=== PATIENT | male | born 1960 | race Caucasian/White ===

== ENCOUNTER 2018-11-10 09:48 | Emergency (ER) | payer SELFPAY ==
[~2018-11-10] VITALS: Ht 185.4 cm; Wt 83.9 kg
--- NOTE | 2018-11-10 09:55 | NUR ---
ED Nurse Note: Pt walked in ED c/o right ankle pain and swelling. Pt states he twisted right ankle couple of weeks ago. Pain 6/10 when walking.
--- NOTE | 2018-11-10 10:20 | NUR ---
ED Nurse Note: Xray at bedside.
--- NOTE | 2018-11-10 10:39 | NUR ---
ED Nurse Note: ERMD at bedside.
--- NOTE | 2018-11-10 10:50 | Emergency Room Report ---
History of Present Illness General Chief Complaint: Lower Extremity Injury Source: Patient Present Illness HPI Patient is a 58-year-old male who presents after increased right ankle pain. Patient reports having injury approximately 3 weeks ago. He states he inverted his ankle. He had been having increased difficulty with movement but had been ambulatory. He reports having some significant pain to the area.Patient reportedly had been taking gabapentin as well as other medications. He denies any other locations of injury. Allergies: Coded Allergies: No Known Allergies (Unverified , 11/10/18) Patient History Past Medical History: see triage record Reviewed Nursing Documentation: PMH: Agreed; PSxH: Agreed Nursing Documentation-[facility] Past Medical History: No History, Except For History Of Psychiatric Problem: Yes - Depression Review of Systems All Other Systems: negative except mentioned in HPI Physical Exam Vital Signs Date Time Temp Pulse Resp B/P (MAP) Pulse Ox O2 Delivery O2 Flow Rate FiO2 11/10/18 09:51 98.8 90 20 142/96 (111) 97 Room Air General Appearance: no apparent distress, alert, GCS 15, Chronically Ill Head: normocephalic, atraumatic ENT: hearing grossly normal, normal voice Neck: full range of motion, supple Respiratory: chest non-tender, lungs clear, normal breath sounds, no respiratory distress, speaking full sentences Gastrointestinal: normal inspection Musculoskeletal: decreased range of mation, other - swelling, deformity Neurologic: normal inspection, alert, normal gait Psychiatric: normal inspection, mood/affect normal Skin: no rash Medical Decision Making Diagnostic Impression: Primary Impression: Closed right ankle fracture Additional Impression: Dislocated ankle ER Course Patient presented for right ankle pain. Differential diagnosis include was not limited to fracture, dislocation, contusion among others. X-ray imaging of the right ankle 3 views interpreted by radiology subacute appearing fracture dislocation of the right ankle with a significant bone callus formation. Patient was noted to be ambulatory on his fracture for several weeks. Patient was placed in a 3 sided splint. He was given crutches. He was advised nonweightbearing status. Given the patient's prolonged time to presentation I feel that this is unreducible fracture at this time. Patient was noted to be able to wiggle his toes good sensation to his extremity. Patient was given prescription for pain medications. He is advised to follow-[facility] with [facility] for operative reduction of fracture dislocation of the ankle. Last Vital Signs Date Time Temp Pulse Resp B/P (MAP) Pulse Ox O2 Delivery O2 Flow Rate FiO2 11/10/18 09:51 98.8 90 20 142/96 (111) 97 Room Air Status: improved Disposition: HOME, SELF-CARE Condition: Stable Scripts Ibuprofen* (MOTRIN*) 600 Mg Tablet 600 MG ORAL Q8H PRN for For Pain, #30 TAB 0 Refills Prov: Jono Naranjo MD 11/10/18 Hydrocodone Bit/Acetaminophen 5-325* (NORCO 5-325*) 1 Each Tablet 1 TAB ORAL Q6H PRN for For Pain, #20 TAB 0 Refills Prov: Jono Naranjo MD 11/10/18 Referrals: NOT CHOSEN [facility]/,REFERRING (PCP) Jono Naranjo MD Nov 10, 2018 10:50
--- NOTE | 2018-11-10 10:51 | Diagnostic Imaging Report ---
Indication: Pain right ankle. Fracture 3 weeks ago Comparison: None Findings: 3 views of the right ankle obtained. There is a subacute fracture of the lateral malleolus with exuberant new bone formation about the fracture. There is lateral disarticulation which is moderate to severe with complete disruption of the deltoid ligament and lateral displacement of the talus with respect to the tibial plafond. IMPRESSION: Subacute fracture dislocation of ankle.
[2018-11-10] MEDS ORDERED: HYDROcodone/Acetamin 5/325 tab ORAL ONE (11:00)
[2018-11-10] MEDS ORDERED: IBUPROFEN600 MG ORAL (11:06)
[2018-11-10] MEDS ORDERED: NORCO 5-325 TA1 EACH ORAL (11:06)
[2018-11-10 11:35] VITALS: BP 135/90
--- NOTE | 2018-11-10 11:35 | NUR ---
ER DISCHARGE NOTE: Patient is cleared to be discharged per ERMD, pt is aox4, on room air, with stable vital signs. pt was given dc and prescription instructions, pt was able to verbalize understanding, pt id band removed. pt is able to ambulate with crutches. pt took all belongings.
== END 2018-11-10 11:32 | disposition home or self-care (01) ==
LOC: EMR 10:17
DX: S82.891A Other fracture of right lower leg, initial encounter for closed fracture (principal); S93.04XA Dislocation of right ankle joint, initial encounter; X58.XXXA Exposure to other specified factors, initial encounter; Y92.9 Unspecified place or not applicable; F32.9 Major depressive disorder, single episode, unspecified
CPT/HCPCS: 99283